=== PATIENT | female | born 1955 | race Caucasian/White ===

== ENCOUNTER → 2017-07-03 | Outpatient (CLI) | payer OTHER ==
[~2017-07-03] MED LIST: AMAN100T PO; AMANTADINE PO; BACI28.43 PO; CARB1TAB2 PO; DIAZEPAM PO; HYDR-3240 PO; ROPI0.5T2 PO
[2017-07-03 09:03] LABS: BASOPHILS % (AUTO) 0 % (0-1); EOSINOPHILS # (AUTO) 0.04 x10^3/uL (0-0.4); EOSINOPHILS % (AUTO) 1 % (1-7); LYMPHOCYTES # (AUTO) 0.92 x10^3/uL (1-3.4); LYMPHOCYTES % (AUTO) 16 % (22-44); MD NO; MEAN CORPUSCULAR HGB CONC 33.9 g/dL (32.4-35.8); MEAN CORPUSCULAR VOLUME 88.4 fL (80-100); MEAN PLATELET VOLUME 9.2 fL (7.4-10.4); MONOCYTES # (AUTO) 0.34 x10^3/uL (0.2-0.8); MONOCYTES % (AUTO) 6 % (2-9); NEUTROPHILS # (AUTO) 4.31 x10^3/uL (1.8-6.8); NEUTROPHILS % (AUTO) 77 % (42-75); PLATELET COUNT 195 x10^3/uL (130-400); RED BLOOD COUNT 5.02 x10^6/uL (3.82-5.3); RED CELL DISTRIBUTION WIDTH 15.2 % (9.6-15.2)
[2017-07-03 09:12] LABS: INTERNATIONAL NORMALIZED RATIO 0.98 (0.93-1.1); PROTHROMBIN TIME 10.1 Seconds (9.6-11.5)
[2017-07-03 09:14] LABS: ANION GAP 7 mmol/L (5-15); CALCIUM 9.4 mg/dL (8.5-10.1); CHLORIDE 106 mmol/L (98-107); CREATININE 0.92 mg/dL (0.55-1.02)
== END | disposition home or self-care (01) ==
LOC: STAR 08:02
PROVIDERS: ATTEND Neurological Surgery
DX: Z01.818 Encounter for other preprocedural examination (principal); G20 Parkinson's disease; I44.4 Left anterior fascicular block
CPT/HCPCS: 36415; 71046; 80048; 85025; 85610; 85730; 93005

== ENCOUNTER 2017-07-10 05:37 | Day surgery (SDC) | payer OTHER ==
[~2017-07-10] VITALS: Ht 160 cm; Wt 58.3 kg
[2017-07-10] MEDS ORDERED: LACTATED RINGERS 1,000 ML IV SCH (06:15)
[2017-07-10 06:19] VITALS: BP 137/85
[2017-07-10] MEDS ORDERED: BACITRACIN OINT 500U/GM, 15 GM ONE (07:04)
[2017-07-10] MEDS ORDERED: EPINEPHRINE 1 MG/ML, 1ML ONE (07:04)
[2017-07-10] MEDS ORDERED: BUPIVACAINE/PF 0.5% ONE (07:04)
[2017-07-10] MEDS ORDERED: FENTANYL PF 100 MCG/2ML ONE (07:05)
[2017-07-10] MEDS ORDERED: THROMBIN 5,000 UNIT VIAL TP ONE (07:05)
[2017-07-10] MEDS ORDERED: BACITRACIN 50,000 UNIT ONE (07:05)
[2017-07-10] MEDS ORDERED: DEXAMETHASONE 4 MG/ML, 1ML ONE (07:25)
[2017-07-10] MEDS ORDERED: NEOSTIGMINE 1 MG/ML, 10ML ONE (07:25)
[2017-07-10] MEDS ORDERED: CEFAZOLIN 1,000 MG ONE (07:25)
[2017-07-10] MEDS ORDERED: ONDANSETRON 2MG/ML, 2ML ONE (07:25)
[2017-07-10] MEDS ORDERED: GLYCOPYRROLATE 0.2MG/1ML, 5ML ONE (07:25)
[2017-07-10] MEDS ORDERED: SUCCINYLCHOLINE 20 MG/ML, 10ML ONE (07:25)
[2017-07-10] MEDS ORDERED: PROPOFOL 10 MG/ML, 20ML ONE (07:25)
[2017-07-10] MEDS ORDERED: ROCURONIUM 10MG/ML,5ML ONE (07:25)
[2017-07-10] MEDS ORDERED: OXYcodone 5 MG/5 ML ORAL.SOL UDC PO PRN (08:00)
[2017-07-10] MEDS ORDERED: ACETAMINOPHEN 325 MG TABLET PO PRN (08:00)
[2017-07-10] MEDS ORDERED: FENTANYL PF 100 MCG/2ML IV PRN (08:00)
[2017-07-10] MEDS ORDERED: KETOROLAC 30 MG/1 ML IV PRN (08:00)
[2017-07-10] MEDS ORDERED: PROMETHAZINE 25 MG/ML, 1ML IV PRN (08:00)
[2017-07-10] MEDS ORDERED: ACETAMINOPHEN 650 MG/20.3 ML UDC ONE (08:57)
== END 2017-07-10 10:45 ==
LOC: OUT 05:37
PROVIDERS: ATTEND Neurological Surgery
DX: Z45.49 Encounter for adjustment and management of other implanted nervous system device (principal); G20 Parkinson's disease; Z87.39 Personal history of other diseases of the musculoskeletal system and connective tissue; Z88.1 Allergy status to other antibiotic agents
CPT/HCPCS: 61885; C1767; J0171; J0330; J0690; J1100; J2405; J2704; J2710; J3010; J3490; J7120